=== PATIENT | male | born 1975 | race Caucasian/White ===

== ENCOUNTER 2016-11-16 21:50 | Inpatient (IN) | payer OTHER ==
--- NOTE | ~2016-11-16 | DS ---
Unit #: [id number] #: [id number] Patient: TALIA AGUILERA [id number] [facility] [address] [place] [address] [id number] I MR#: [id number] NAME: TALIA AGUILERA. ROOM: [facility] Age: 41 Sex: M Admission Date: 11/16/2016 : 1975 Discharge Date: 11/24/2016 Attending Physician: Garrett Garcia M.D. Primary Care Physician: Primary Care Physician No DISCHARGE SUMMARY REASON FOR ADMISSION Mr. Aguilera is a 41-year-old man, who presented to [facility], reporting he had overdosed on heroin and had suicidal ideation. He was admitted for stabilization. LABORATORY DATA Hepatitis C was positive and the patient was informed. HOSPITAL COURSE The patient was admitted and placed on the opioid detox protocol. The patient's elevated white count which resulted in a Medical consultation. Initially, he was placed on Cleocin for unknown infection, but was also discovered to have hepatitis C and was informed by the desktop support consultant. He was referred to outpatient treatment. The patient did attempt to harm himself by hanging in the bathroom supposedly at the behest of auditory hallucinations. Seroquel had been started and was increased to 200 mg at bedtime for this. He suffered no apparent injury from his suicide attempt and later recanted any further suicidal ideation. As his hospitalization progressed, his mood improved and on the date of discharge, he contracted for safety. DISCHARGE DIAGNOSIS AXIS I: Opioid dependence withdrawal, uncomplicated. Substance induced psychotic disorder. AXIS II: No diagnosis. AXIS III: Recent exposure to hepatitis C. AXIS IV: AXIS V: DISCHARGE INSTRUCTIONS The patient is to follow up with primary care physician, [facility], [facility] DISCHARGE MEDICATIONS 1. Remeron 30 mg at bedtime for depression. 2. Seroquel 200 mg at bedtime for psychotic features. 3. Neurontin 400 mg t.i.d. for anxiety. 4. Cleocin 300 mg t.i.d. until gone for infection. CONDITION AT DISCHARGE Improved. Unit #: [id number] #: [id number] Patient: TALIA AGUILERA PROGNOSIS Fair to good. DIET AND ACTIVITY Per primary care doctor. Dictated by... Garrett Garcia M.D. [facility]/modl TD: 01/29/2017 14:31 JOB #: [id number] DISCHARGE SUMMARY Page 1 of 1 X Garrett Garcia MD DISCHARGE SUMMARY
--- NOTE | ~2016-11-16 | PN ---
Unit #: [id number] #: [id number] Patient: TALIA AGUILERA [id number] [facility] [address] [place] [address] [id number] I MR#: [id number] NAME: TALIA AGUILERA. ROOM: [facility] Age: 41 Sex: M Admission Date: 11/16/2016 : 1975 Attending Physician: Garrett Garcia M.D. Admitting Physician: Garrett Garcia M.D. Primary Care Physician: Primary Care Physician Nikky HENDRIX PROGRESS NOTES DATE 11/22/2016 DISCUSSION Mr. Aguilera made a suicide attempt last night by attempting to hang himself in his bathroom at about 4 o'clock this morning after his bathroom was open for him to use. He suffered no injury from this and it is not clear how he got around to suspending himself from the bathroom. He continues to report that he "hears voices" and suspects that this is a substance-induced problem. His mood is depressed and labile with a congruent affect. He is alert and fully oriented. His memory and concentration are fair, and his thought processes are logical but he reports ongoing auditory hallucinations. ASSESSMENT Major depression with psychotic features, opiate dependence. PLAN We will continue one-to-one precautions today and increase the Seroquel to 200 mg at bedtime on a scheduled basis. Dictated by... Rubina France/lito TD: 11/24/2016 06:56 JOB #: [id number] Unit #: [id number] #: [id number] Patient: TALIA AGUILERA PROGRESS NOTES Page 1 of 1 X Garrett Garcia MD PROGRESS NOTE
--- NOTE | ~2016-11-16 | CO ---
Unit #: [id number] #: [id number] Patient: OSBALDO HAWLEY [id number] [place] [address] [id number] I MR#: [id number] NAME: OSBALDO HAWLEY. ROOM: [facility] Age: 41 Sex: M Admission Date: 11/16/2016 : 1975 Attending Physician: Garrett Garcia M.D. Primary Care Physician: Primary Care Physician No Consultation Date: 11/17/2016 CONSULTATION REPORT SUBJECTIVE Osblado is a 41 year old originally admitted because of his illicit substance abuse which included heroin. We have been asked to see him for an elevated white blood cell count of 27.0. He has no complaints of cough, shortness of breath, and never been no recorded increased temperatures. He has had no nausea, vomiting, or diarrhea. He has no red, swollen, tender joints. He denies any recent steroid use. OBJECTIVE GENERAL: Alert, thin. No apparent distress. VITAL SIGNS: Blood pressure 100/56, heart rate 62, respirations 16, and temperature 98.6. Weight: 130, height 5 feet 8 inches. HEENT: Normocephalic. TMs shiny bilaterally. Oral and nasal passages clear. Conjunctivae clear. NECK: Supple without lymphadenopathy. CARDIOVASCULAR: Rate and rhythm regular. CHEST: Lungs clear. No cough noted. ABDOMEN: Soft, nontender. EXTREMITIES: No edema. DIAGNOSTIC STUDIES LABORATORY DATA: WBC 27.0. AST/ALT 106/130. Urinalysis within normal limits. Comprehensive hepatitis profile pending. PLAN Repeat WBC on 11/18/2016 was 30.8. Hepatitis C profile was pending. He again had no complaints of nausea or vomiting. There as no yellowing of his eyes or skin. He was empirically started on Cleocin 300 mg 1 p.o. t.i.d. while we waited for hepatitis profile to return. Repeat WBC on 11/20/2016 was 14.8 with neutrophils 11.6, bands 12.0, lymphocytes 8.0. Hepatitis profile positive hepatitis C. The patient was notified. He needs to follow up with GI clinic for treatment should he so desire. Dictated by... Susanna Alatorre P.A.-C. for Lyric Herrera M.D. CELESTINA/ashley Unit #: [id number] #: [id number] Patient: OSBALDO HAWLEY TD: 11/29/2016 09:31 JOB #: [id number] CONSULTATION REPORT Page 1 of 1 X Susanna Alatorre CONSULTATION REPORT
--- NOTE | ~2016-11-16 | HP ---
Unit #: [id number] #: [id number] Patient: OSBALDO HAWLEY [id number] [place] [address] [id number] I MR#: [id number] NAME: OSBALDO HAWLEY. ROOM: [facility] Age: 41 Sex: M Admission Date: 11/16/2016 : 1975 Attending Physician: Garrett Garcia M.D. Admitting Physician: Garrett Garcai M.D. Primary Care Physician: Primary Care Physician No HISTORY AND PHYSICAL HISTORY OF PRESENT ILLNESS Osbaldo is a 31 year old admitted to [facility] because of his illicit substance abuse which includes heroin. PAST MEDICAL HISTORY Long history of illicit substance abuse to include heroin PAST SURGICAL HISTORY Nothing reported ALLERGIES No known drug allergies. SOCIAL HISTORY Smokes one pack per day. Drinks alcohol on occasion. Admits to a long history of illicit substance abuse to include heroin. FAMILY HISTORY Medically noncontributory. REVIEW OF SYSTEMS CONSTITUTIONAL: No fever or chills. HEENT: Denies any sore throat, ear pain or runny nose. CARDIOVASCULAR: Denies chest pain, irregular heart rhythm or palpitations. CHEST: Denies shortness of breath or cough. No hemoptysis. GASTROINTESTINAL: Denies nausea, vomiting, diarrhea or chronic constipation. ENDOCRINE: Denies history of increased thirst or urination. No recent significant weight loss or gain. GENITOURINARY: Denies dysuria, frequency, or hematuria. SKIN: Denies any rashes. HEMATOLOGIC: Denies history of increased bleeding or bruising. MUSCULOSKELETAL: Denies any hot, swollen joints. No generalized muscle pain. NEUROLOGIC: Denies problems with vision or speech. No frequent, severe headaches. No numbness, tingling or weakness in any extremities. Denies loss of bladder or bowel control. CURRENT MEDICATIONS Detox protocol PHYSICAL EXAMINATION Unit #: [id number] #: [id number] Patient: OSBALDO HAWLEY GENERAL: Alert, well-nourished, in no apparent distress. VITAL SIGNS: Blood pressure 100/62, heart rate 80, respirations 16, temperature 98.6. WEIGHT: 130 pounds. HEIGHT: 5'8". SKIN: Warm and dry without rash or lesion. HEENT: Normocephalic. TMs not viewed. Oral and nasal passages clear. Conjunctivae clear. Pupils equal, round and reactive to light and accommodation. Extraocular movements intact. NECK: Supple without lymphadenopathy or thyromegaly. HEART: Regular rate and rhythm without murmur. LUNGS: Clear. ABDOMEN: Soft, nontender. : Not done. EXTREMITIES: No evidence of cyanosis, clubbing or edema. Moves all extremities without focal deficit. NEUROLOGICAL: Grossly within normal limits. Cranial Nerves: II: Visual centeno are intact. III, IV AND : Extraocular movements are intact. Pupils are equal, round and reactive to light. V: Facial sensation is grossly normal. VII: Facial movements and expression are normal. VIII: Auditory acuity grossly intact. IX, X: Uvula is midline. Phonation is normal. XI: Patient shrugs shoulders and turns head normally. XII: Tongue protrudes in the midline. Sensory and Motor Function: Sensory and motor sensation is grossly normal. Motor: moves all extremities well. Coordination: Gait is normal. Deep Tendon Reflexes: Intact. IMPRESSION Psychiatric admission RECOMMENDATIONS PSYCHIATRIC: Per psychiatrist. MEDICAL: I see no contraindications to participating in facility's activities. MEDICAL PROGNOSIS Good. MEDICAL CONDITION Stable. Dictated by... Susanna Alatorre P.A.-C. for Rubina Avila/quyen TD: 11/18/2016 03:28 JOB #: [id number] Unit #: [id number] #: [id number] Patient: OSBALDO HAWLEY HISTORY AND PHYSICAL Page 1 of 1 X Susanna Alatorre HISTORY AND PHYSICAL
--- NOTE | ~2016-11-16 | PA ---
Unit #: [id number] #: [id number] Patient: OSBALDO HAWLEY [id number] [facility] [address] [place] [address] [id number] MR#: [id number] NAME: OSBALDO HAWLEY. ROOM: [facility] Age: 41 Sex: M Admission Date: 11/16/2016 : 1975 Date of Assessment: 11/17/2016 Attending Physician: Garrett Garcia M.D. Admitting Physician: Garrett Garcia M.D. Primary Care Physician: Primary Care Physician No PSYCHIATRIC ASSESSMENT DATE OF SERVICE 11/17/2016. REASON FOR ADMISSION Osbaldo is a 41-year-old man, who presented to [facility] after he reported to EMS taking "a lot of heroin" and he was given fluids and medically stabilized. He told the ER staff that he would "hang himself if I go home like this," and after he was medically stabilized, [facility]. PREVIOUS PSYCHIATRIC HISTORY The patient was at this facility in 2013 for opioid dependence and has been at [facility], and other [facility] in the past. FAMILY PSYCHIATRIC HISTORY None reported. SOCIAL HISTORY The patient reports he had difficulty maintaining employment due to his frequent drug use and is temporarily homeless. He does have some support from parents and brother. PAST MEDICAL HISTORY No chronic medical problems. MEDICATIONS None. ALLERGIES No known medication allergies. SUBSTANCE USE HISTORY As noted, the patient has a long history of opioid dependence. MENTAL STATUS EXAMINATION The patient presented as a thin man, who appeared his stated age. He was sleepy and had difficulty cooperating with the examination. He stood 5 feet 8 inches tall and weighed 130 pounds. Vital signs; temperature 98.1, pulse 112, respirations 18, and blood pressure 94/63. His speech was soft and sparse. Musculoskeletal examination was calm. His mood was irritable with a congruent affect. He was alert and fully oriented with no evidence of psychosis. He denied intent to harm himself in the hospital, but could Unit #: [id number] #: [id number] Patient: OSBALDO HAWLEY not contract for safety outside of the hospital. Insight and judgment, fair. Fund of knowledge and abstraction, fair. ASSETS AND LIABILITIES The patient is familiar with local resources and is in general good health. Liabilities include problems maintaining sobriety and erratic employment. ADMITTING DIAGNOSES AXIS I: Opioid dependence with withdrawal, uncomplicated, F11.23. AXIS II: No diagnosis. AXIS III: None known. AXIS IV: AXIS V: PSYCHIATRIC PLAN The patient was admitted and placed on the opioid detox protocol. He will enroll in dual diagnosis groups and activities, and a physical examination and laboratory studies will be ordered and reviewed. TREATMENT GOALS Resolution of intoxication, improvement in insight, and improvement in coping skills. DISCHARGE PLANNING Follow up with [facility]. ESTIMATED LENGTH OF STAY 5 days. Dictated by... Garrett Garcia M.D. BENJAMIN/wendy TD: 11/17/2016 12:50 JOB #: [id number] PSYCHIATRIC ASSESSMENT Page 1 of 1 X Garrett Garcia MD X PSYCHIATRIC ASSESSMENT
--- NOTE | ~2016-11-16 | A ---
[facility] Nutrition Therapy DATE: 11/17/16 Patient: TALIA HAWLEY Physician: TOMY Address: [address] Room/Bed: [address], Zip: [place] [address] Admit Date: 11/16/16 Date of : [birth year] Height: 5 8 Weight: [phone] NUTRITIONAL ASSESSMENT: REASON: NUTRITION RISK POINT- UNINTENTIONAL WEIGHT LOSS PATIENT ADMITTED FOR HEROIN DETOX, SI, AND DEPRESSION PMH: LONG HX OPIATE ABUSE Anthropometrics: HT: 5'8", WT: 130#, BMI: 19.8, %IBW: 84 Labs: 11/17/16- GLU: 58, ALB: 3.3, AST: 106, ALT: 130 Meds: DETOX PROTOCOL Assessment: PATIENT IS A 41 Y/O MALE ADMITTED FOR HEROIN DETOX, SI, AND DEPRESSION. PATIENT IS CURRENTLY UNEMPLOYED, LIVES ALONE, SMOKES 1 PPD, HAS DAILY HEROIN USE, AND HAS FREQUENT METH AND VALIUM USE. PATIENT WAS A DIRECT ADMIT FROM [facility], WHERE HE HAD 2 BOUGHTS OF DIARRHEA IN THE ED D/T DETOX. PATIENT HAS A HX OF INPT/OUTPT PSYCH HOSPITALIZATIONS. PATIENT STATED A POOR APPETITE WITH AN UNKNOWN AMOUNT OF WEIGHT LOSS. CURRENT PO INTAKES ARE NOT AVAILABLE. PATIENT IS ON A REGULAR DIET WITH NO CAFFEINE. THERE ARE NO SKIN ISSUES NOTED ATT. Dx: INADEQUATE NUTRIENT INTAKE R/T CURRENT CONDITION, DETOX AEB DECREASED APPETITE, <90%IBW, NUTRITION RISK POINT Intervention: REGULAR DIET WITH NO CAFFEINE, MEDS PER MD, DETOX, PSYCH Monitoring, Evaluation and Goals: 1. ADEQUATE PO INTAKES >50% OF MEALS 2. PREVENT, CORRECT MICRO/MACRO NUTRIENT DEFICIENCIES 3. WEIGHT; MAINTAIN CURRENT WEIGHT, PREVENT ANY WEIGHT LOSS MONITOR: WEIGHTS, LABS, PO/FLUID INTAKES Recommendations: 1. CONTINUE REGULAR DIET WITH NO CAFFEINE TOLERATED. 2. ENCOURAGE ADEQUATE PO AND FLUID INTAKES 3. OBTAIN WEIGHTS ROUTINELY (EVERY 3-4 DAYS) RD TO F/U PER PROTOCOL AND PRN R/T PATIENT MILDLY COMPROMISED [facility] Nutrition Therapy DATE: 11/17/16 Patient: TALIA HAWLEY Physician: TOMY Address: [address] Room/Bed: [address], Zip: [place] [address] Admit Date: 11/16/16 Date of : [birth year] Height: 5 8 Weight: [phone] Respectfully, DOLORES ARCHULETA RD, LD [facility] and Nutrition[facility] cc: client file
[2016-11-17 09:49] LABS: ALBUMIN SERUM 3.3 g/dL (3.5-5.0); BASOPHIL% 0.2 % (0-2.5); BILIRUBIN,TOTAL 1.9 mg/dL (0.2-2.0); BUN/CREATININE RATIO 21.11; CALCIUM SERUM 8.7 mg/dL (8.4-10.2); CREATININE SERUM 0.9 mg/dL (0.6-1.4); DIFF IND YES; GLOM FILT RATE Estimated 106.5 mL/min (>60); HEMATOCRIT 44.9 % (38.0-50.0); HEMOGLOBIN 14.9 gm/dL (13.0-16.0); LYMPHOCYTE# 0.7 X10e3 (1.0-3.5); LYMPHOCYTE% 2.6 % (17.0-45.0); MEAN CELL VOLUME 82.5 FL (83-96); MEAN CORPUSCULAR HEMOGLOBIN 27.5 PG (28-34); MEAN CORPUSCULAR HGB CONC 33.3 g/dL (30-36); MEAN PLATELET VOLUME 8.9 FL (6.5-11.5); MONOCYTE# 1.2 X10e3 (0-1.0); MONOCYTE% 4.3 % (3.0-12.0); NEUTROPHIL# 25.1 X10e3 (1.5-7.1); NEUTROPHIL% 92.9 % (40-75); PLATELET COUNT 186 X10e3 (140-420); POTASSIUM 4.1 mmol/L (3.5-5.1); PROTEIN TOTAL SERUM 6.1 g/dL (6.0-8.3); RED BLOOD COUNT 5.44 X10e (3.90-5.60); RED CELL DISTRIBUTION WIDTH 13.9 % (11.0-15.5)
[2016-11-17 10:53] LABS: PLATELET ESTIMATE NORMAL (NORMAL); RBC NORMAL YES
[2016-11-18 16:54] LABS: BASOPHIL# 0.1 X10e3 (0-0.3); BASOPHIL% 0.4 % (0-2.5); EOSINOPHIL# 0.1 X10e3 (0-0.7); EOSINOPHIL% 0.4 % (0.0-7.0); HEMATOCRIT 40.8 % (38.0-50.0); HEMOGLOBIN 13.7 gm/dL (13.0-16.0); LYMPHOCYTE# 1.7 X10e3 (1.0-3.5); LYMPHOCYTE% 5.4 % (17.0-45.0); MEAN CELL VOLUME 81.4 FL (83-96); MEAN CORPUSCULAR HEMOGLOBIN 27.3 PG (28-34); MEAN CORPUSCULAR HGB CONC 33.5 g/dL (30-36); MONOCYTE# 1.1 X10e3 (0-1.0); MONOCYTE% 3.4 % (3.0-12.0); NEUTROPHIL# 27.8 X10e3 (1.5-7.1); NEUTROPHIL% 90.4 % (40-75); PLATELET COUNT 145 X10e3 (140-420); RED BLOOD COUNT 5.01 X10e (3.90-5.60); RED CELL DISTRIBUTION WIDTH 14.2 % (11.0-15.5); WHITE BLOOD COUNT 30.8 X10e3 (4.0-10.5)
[2016-11-18 16:56] LABS: DIFF IND YES
[2016-11-18 17:15] LABS: PLATELET ESTIMATE NORMAL (NORMAL)
[2016-11-18 17:16] LABS: RBC NORMAL YES
[2016-11-19 12:35] LABS: URINE APPEARANCE CLEAR; URINE BILIRUBIN NEG (NEG); URINE BLOOD NEG (NEG); URINE COLOR DK YELLOW; URINE GLUCOSE NEG (NEG); URINE KETONE NEG (NEG); URINE LEUKOCYTE ESTERASE NEG (NEG); URINE NITRATE NEG (NEG); URINE PROTEIN NEG (NEG); URINE SPECIFIC GRAVITY 1.013 (1.003-1.035)
[2016-11-19 12:50] LABS: AMPHETAMINE NEG (NEG); BARBITURATES NEG (NEG); BENZODIAZEPINES POS (NEG); COCAINE NEG (NEG); MARIJUANA NEG (NEG); OPIATES NEG (NEG); TRICYCLIC ANTIDEPRESSANTS NEG (NEG); U METHADONE NEG (NEG)
[2016-11-20 09:44] LABS: BASOPHIL# 0.1 X10e3 (0-0.3); BASOPHIL% 0.5 % (0-2.5); HEMATOCRIT 45.7 % (38.0-50.0); HEMOGLOBIN 15.3 gm/dL (13.0-16.0); LYMPHOCYTE# 2.3 X10e3 (1.0-3.5); LYMPHOCYTE% 15.6 % (17.0-45.0); MEAN CELL VOLUME 81.5 FL (83-96); MEAN CORPUSCULAR HEMOGLOBIN 27.3 PG (28-34); MEAN CORPUSCULAR HGB CONC 33.5 g/dL (30-36); MONOCYTE# 0.9 X10e3 (0-1.0); NEUTROPHIL# 11.6 X10e3 (1.5-7.1); NEUTROPHIL% 77.9 % (40-75); PLATELET COUNT 194 X10e3 (140-420); RED BLOOD COUNT 5.61 X10e (3.90-5.60); RED CELL DISTRIBUTION WIDTH 14.1 % (11.0-15.5)
[2016-11-20 09:46] LABS: DIFF IND NO; WHITE BLOOD COUNT 14.8 X10e3 (4.0-10.5)
[2016-11-26 06:03] LABS: HA AB IGM (HEPPAN) Nonreactive (()); HB CORE AB IGM (HEPPAN) Nonreactive (Nonreactive); HB S AG (HEPPAN) Nonreactive (Nonreactive); HEP C AB (HEPPAN) Reactive (Nonreactive)
== END 2016-11-24 11:20 | disposition home or self-care (01) | DRG 897 ==
LOC: P1E 21:50
PROVIDERS: Physician Assistant Medical; Psychiatry & Neurology Psychiatry
PROC: HZ2ZZZZ Detoxification Services for Substance Abuse Treatment (ICD-10-PCS; principal; 2016-11-17)
DX: F11.23 Opioid dependence with withdrawal (principal); F32.3 Major depressive disorder, single episode, severe with psychotic features; F17.210 Nicotine dependence, cigarettes, uncomplicated
CPT/HCPCS: 80053; 80074; 80307; 81003; 85025; 86592; 87522; J2550